=== PATIENT | male | born 1965 | race Caucasian/White ===

== ENCOUNTER 2017-06-28 15:41 | Emergency (ER) | payer BC ==
--- NOTE | 2017-06-28 15:42 | PDOC ---
Rapid Medical Evaluation Time Seen by Provider: 06/28/17 15:42 Medical Evaluation: 06/28/17 15:56 51 year old male with asthma (no hospitalizations, daily Singulair and Dulera) presenting with chest pain. Pain started under right shoulder this morning, now is in right chest. +SOB, +pleuritic chest pain. V/s unremarkable. EKG NSR 78bpm ?[facility] Labs including CBC, CMP, trop, PT/INR CXR -To Main ED for further evaluation
[2017-06-28 15:58] VITALS: TEMP 97.9; BMI 26.4
[2017-06-28 17:03] LABS: BASO % 0.8 % (0-2.0); EOS % 13.5 % (0-4.5); HEMATOCRIT 45.8 % (35.4-49); HEMOGLOBIN 16.2 GM/dL (11.7-16.9); LYMPH % 27.1 % (8-40); MCHC 35.4 g/dl (32.0-35.9); MEAN CELL VOLUME 90.5 fl (80-96); MEAN PLT VOLUME 7.6 fl (7.5-11.1); MONO % 7.1 % (3.8-10.2); NEUT % 51.5 % (42.8-82.8); PLATELET COUNT 229 K/MM3 (134-434); RBC 5.06 M/mm3 (4.00-5.60); RDW 13.1 % (11.9-15.9); WHITE BLOOD COUNT 7.2 K/mm3 (4.0-10.0)
[2017-06-28 17:20] LABS: INR 1.02 (0.82-1.09); PROTHROMBIN TIME (PATIENT) 11.5 SEC (9.98-11.88)
[2017-06-28 17:29] LABS: ALBUMIN 4.4 g/dl (3.4-5.0); ALK PHOS 93 U/L (45-117); ANION GAP 7 (8-16); BILIRUBIN,TOTAL 0.7 mg/dL (0.2-1.0); BLOOD UREA NITROGEN 11 mg/dL (7-18); CALCIUM 9.1 mg/dL (8.5-10.1); CHLORIDE 106 mmol/L (98-107); CO2 28 mmol/L (21-32); CREATININE 1.1 mg/dL (0.7-1.3); GLUCOSE,RANDOM 83 mg/dL (74-106); POTASSIUM 4.3 mmol/L (3.5-5.1); SGOT/AST 20 U/L (15-37); SGPT/ALT 31 U/L (12-78); SODIUM 141 mmol/L (136-145)
--- NOTE | 2017-06-28 21:00 | PDOC ---
History of Present Illness <Idris Estevez - Last Filed: 06/29/17 00:50> - History of Present Illness Initial Comments: 06/28/17 20:50 51-year-old male with a history of asthma (on daily Singulair and Solera) presents to the emergency department with right shoulder blade pain radiating forward to the right side of his chest since 6:30 AM this morning. The patient reports the pain is pressure-like and is associated with tingling down the right upper extremity. He also reports that the pain is worse when he takes a deep breath. He denies any associated nausea, vomiting, diaphoresis. He feels mildly lightheaded intermittently but denies current lightheadedness. Patient denies any history of similar symptoms. Reports his pain is not exertional and is present at rest. Denies recent travel or immobility. Has no smoking history. Has no significant family history of cardiac disease. Has no personal history of DVT, clot. Denies recent trauma or heavy lifting. Denies any drug use. States this does not feel like his asthma symptoms. <Humphrey Valdovinos - Last Filed: 06/29/17 01:00> - General Chief Complaint: Chest Pain Stated Complaint: CHEST PAIN, RT SIDE NUMBNESS Time Seen by Provider: 06/28/17 15:42 Past History <Idris Estevez - Last Filed: 06/29/17 00:50> - Past Medical History Asthma: Yes COPD: No - Suicide/Smoking/Psychosocial Hx Smoking History: Never smoked Information on smoking cessation initiated: No Hx Alcohol Use: No Drug/Substance Use Hx: No Substance Use Type: None <Humphrey Valdovinos - Last Filed: 06/29/17 01:00> - Past Medical History Allergies/Adverse Reactions: Allergies Allergy/AdvReac Type Severity Reaction Status Date / Time No Known Allergies Allergy Verified 06/28/17 15:58 Home Medications: Ambulatory Orders Mometasone/Formoterol [Dulera 200 Mcg/5 Mcg Inhaler] 2 inh IH BID 06/28/17 Montelukast Sodium [Singulair] 10 mg PO HS 06/28/17 Review of Systems - Review of Systems Comments:: 06/28/17 21:09 GENERAL/CONSTITUTIONAL: No fever or chills. No weakness. HEAD, EYES, EARS, NOSE AND THROAT: No change in vision. No ear pain or discharge. No sore throat. GASTROINTESTINAL: No nausea, vomiting, diarrhea or constipation. GENITOURINARY: No dysuria, frequency, or change in urination. CARDIOVASCULAR: +chest pain, no shortness of breath. RESPIRATORY: No cough, wheezing, or hemoptysis. MUSCULOSKELETAL: No joint or muscle swelling or pain. No neck pain. +R shoulder blade pain SKIN: No rash NEUROLOGIC: No headache, vertigo, loss of consciousness, or change in strength/ sensation. +dizziness ENDOCRINE: No increased thirst. No abnormal weight change. HEMATOLOGIC/LYMPHATIC: No anemia, easy bleeding, or history of blood clots. ALLERGIC/IMMUNOLOGIC: No hives or skin allergy. <Humphrey Valdovinos - Last Filed: 06/29/17 01:00> *Physical Exam - Vital Signs Last Vital Signs Temp Pulse Resp BP Pulse Ox 97.9 F 82 18 125/91 95 06/28/17 15:56 06/28/17 15:56 06/28/17 15:56 06/28/17 15:56 06/28/17 15:56 <Idris Estevez - Last Filed: 06/29/17 00:50> - Vital Signs Last Vital Signs Temp Pulse Resp BP Pulse Ox 97.9 F 82 18 125/91 95 06/28/17 15:56 06/28/17 15:56 06/28/17 15:56 06/28/17 15:56 06/28/17 15:56 - Physical Exam Comments: 06/28/17 21:10 GENERAL: Awake, alert, and fully oriented, in no acute distress HEAD: No signs of trauma EYES: PERRLA, EOMI, sclera anicteric, conjunctiva clear ENT: Auricles normal inspection, hearing grossly normal, nares patent, oropharynx clear without exudates. Moist mucosa NECK: Normal ROM, supple, no lymphadenopathy, JVD, or masses LUNGS: Breath sounds equal, clear to auscultation bilaterally. No wheezes, and no crackles HEART: Regular rate and rhythm, normal S1 and S2, no murmurs, rubs or gallops ABDOMEN: Soft, nontender, normoactive bowel sounds. No guarding, no rebound. No masses EXTREMITIES: Normal range of motion, no edema. No clubbing or cyanosis. No cords, erythema, or tenderness. 2+ equal peripheral pulses in all extremities NEUROLOGICAL: Normal speech, cranial nerves intact, negative pronator drift, 5/ 5 strength in all 4 extremities, normal sensation to light touch in all 4 extremities, normal cerebellar exam, normal gait, normal reflexes and tone BACK: +ttp to right rhomboid, no midline spinal ttp. SKIN: Warm, Dry, normal turgor, no rashes or lesions noted. <MarkNaga rodriguezyoli - Last Filed: 06/29/17 01:00> Heart Score/ECG Review - History History: Slightly suspicious - Electrocardiogram EKG: Normal - Age Age: 45-65 - Risk Factors Based on the list above the patient has:: No risk factors known - Troponin Troponin: </= normal limit - Score Heart Score - Total: 1 #1 06/28/17 21:13 Twelve-lead EKG was performed and reviewed by me. Normal sinus rhythm, rate 78. Normal axis and intervals. No ST elevations or T-wave inversions. <Humphrey Valdovinos - Last Filed: 06/29/17 01:00> ED Treatment Course - LABORATORY CBC & Chemistry Diagram: 06/28/17 16:37 06/28/17 16:37 - ADDITIONAL ORDERS Additional order review: Laboratory Results 06/28/17 06/28/17 06/28/17 21:30 16:37 16:37 PT with INR 11.50 INR 1.02 Sodium 141 Potassium 4.3 Chloride 106 Carbon Dioxide 28 Anion Gap 7 L BUN 11 Creatinine 1.1 Creat Clearance w eGFR > 60 Random Glucose 83 Calcium 9.1 Total Bilirubin 0.7 AST 20 ALT 31 Alkaline Phosphatase 93 Creatine Kinase 69 Troponin I < 0.02 < 0.02 Total Protein 8.0 Albumin 4.4 06/28/17 16:37 RBC 5.06 MCV 90.5 MCHC 35.4 RDW 13.1 MPV 7.6 Neutrophils % 51.5 Lymphocytes % 27.1 Monocytes % 7.1 Eosinophils % 13.5 H Basophils % 0.8 - RADIOLOGY Radiograph Interpretation: 06/29/17 00:50 EXAM: CT ABDOMEN AND PELVIS WITH CONTRAST and CT CHEST WITH CONTRAST CHEST 5 mm nodule left upper lobe, advise followup. Very small scattered ground glass densities left lung and right upper lobe, correlate clinically for possible atypical infection/inflammation. No pulmonary embolism. No aortic dissection or aneurysm. No pneumonia or pleural effusions. ABDOMEN/PELVIS No aortic dissection or aneurysm. No bowel obstruction, colitis, diverticulitis, free fluid or free air. Normal appendix. Unremarkable pancreas, kidneys and gallbladder. Small umbilical hernia and patulous left inguinal canal, each scontaining fat. Reported by Magui Hayden M.D. <Idris Estevez - Last Filed: 06/29/17 00:50> - LABORATORY CBC & Chemistry Diagram: 06/28/17 16:37 06/28/17 16:37 - ADDITIONAL ORDERS Additional order review: Laboratory Results 06/28/17 06/28/17 16:37 16:37 PT with INR 11.50 INR 1.02 Sodium 141 Potassium 4.3 Chloride 106 Carbon Dioxide 28 Anion Gap 7 L BUN 11 Creatinine 1.1 Creat Clearance w eGFR > 60 Random Glucose 83 Calcium 9.1 Total Bilirubin 0.7 AST 20 ALT 31 Alkaline Phosphatase 93 Creatine Kinase 69 Troponin I < 0.02 Total Protein 8.0 Albumin 4.4 06/28/17 16:37 RBC 5.06 MCV 90.5 MCHC 35.4 RDW 13.1 MPV 7.6 Neutrophils % 51.5 Lymphocytes % 27.1 Monocytes % 7.1 Eosinophils % 13.5 H Basophils % 0.8 - RADIOLOGY Radiology Studies Ordered: Category Date Time Status ABDOMEN/PELVIS CTA W/WO CONTR [CT] Stat CT Scan 06/28/17 20:43 Ordered CHEST CTA [CT] Stat CT Scan 06/28/17 20:43 Ordered <Humphrey Valdovinos - Last Filed: 06/29/17 01:00> Medical Decision Making - Medical Decision Making 06/28/17 21:14 51-year-old male with a history of asthma presents to the emergency department with right shoulder blade pain radiating anteriorly to the right side of his chest. Vitals unremarkable. Exam with right sided upper back tenderness to palpation. EKG is nonischemic. Differential includes aortic dissection given radiation from back to chest. ACS on differential but pt's HS is 1 for age and thus unlikely. Pt meets no PERC criteria, thus unlikely PE. Initial set of labs including trop is negative. Will obtian CTA to r/o dissection, and get 2nd trop and reassess. 06/29/17 00:56 Troponin negative 2. CTA of chest, abdomen, pelvis negative for dissection but reveals right upper lobe and left-sided groundglass opacities concerning for possible pneumonia. Patient also has lung nodule in the left upper lobe. Discussed all results with patient, given hemodynamically stable, relatively healthy patient, with no recent hospitalizations will treat for community- acquired pneumonia as an outpatient with doxycycline twice a day for 7 days. Patient has been aware of the nodule, informed him it is 5 mm today, he states he will follow-up with his migration agent regarding the nodule. He feels well and requests discharge home. I discussed the physical exam findings, ancillary test results and final diagnoses with the patient. I answered all of the patient's questions. The patient was satisfied with the care received and felt comfortable with the discharge plan and treatment plan. The patient will call their primary care physician within 24 hours to arrange follow-up and will return to the Emergency Department with any new, persistent or worsening symptoms. <Humphrey Valdovinos - Last Filed: 06/29/17 01:00> *DC/Admit/Observation/Transfer - Attestations Scribe Attestion: 06/29/17 00:50 Documentation prepared by Idris Estevez, acting as medical office assistant for Humphrey Valdovinos MD. <Idris Estevez - Last Filed: 06/29/17 00:50> - Discharge Dispostion Admit: No - Attestations Physician Attestion: 06/29/17 01:00 I, Dr. Humphrey Valdovinos MD, attest that this document has been prepared under my direction and personally reviewed by me in its entirety. I further attest, that it accurately reflects all work, treatment, procedures and medical decision -making performed by me. <Humphrey Valdovinos - Last Filed: 06/29/17 01:00> Diagnosis at time of Disposition: Pneumonia - Discharge Dispostion Disposition: HOME Condition at time of disposition: Stable - Referrals Referrals: Mohamud Sommer [Primary Care Provider] - - Patient Instructions Printed Discharge Instructions: DI for Chest Pain Additional Instructions: Take your antibiotics as prescribed. Follow-up with Dr. Sommer within 1-2 days. Also, follow-up with your migration agent regarding your lung nodule. Take the provided report of your CT scan with you to your appointments. Return to the emergency department if you have any new, worsening or concerning symptoms. - Post Discharge Activity
[2017-06-29] MEDS ORDERED: DOXYCYCLINE HYCLATE 100 MG CAPSULE PO ONE ×2 (00:55→01:34)
[2017-06-29 01:44] VITALS: BP 130/77; PULSE 75
--- NOTE | 2017-06-29 10:42 | EKG ---
Test Reason : Blood Pressure : / mmHG Vent. Rate : 078 BPM Atrial Rate : 078 BPM P-R Int : 150 ms QRS Dur : 094 ms QT Int : 396 ms P-R-T Axes : 050 043 043 degrees QTc Int : 451 ms NORMAL SINUS RHYTHM VOLTAGE CRITERIA FOR LEFT VENTRICULAR HYPERTROPHY NO PREVIOUS ECGS AVAILABLE Confirmed by SANA EDOUARD MD ([id number]) on 06/29/2017 10:41:53 AM Referred By: Confirmed By:SANA EDOUARD MD
== END 2017-06-29 01:41 | disposition home or self-care (01) ==
LOC: JER 15:41
DX: J18.9 Pneumonia, unspecified organism (principal); J45.909 Unspecified asthma, uncomplicated
CPT/HCPCS: 36415; 71046-TC-FY; 71275-TC; 74174-TC; 80053; 82550; 84484; 85025; 85610; 93005; 93010; 99284-25

== ENCOUNTER 2019-11-23 14:15 | Emergency (ER) | payer OTHER, BC ==
[2019-11-23 14:26] VITALS: BP 132/82; PULSE 97; TEMP 98; BMI 25.7
[2019-11-23] MEDS ORDERED: KETOROLAC TROMETHAMINE 30 MG/1 ML VIAL IM ONE (14:33)
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
[2019-11-23] MEDS ORDERED: KETOROLAC TROMETHAMINE 30 MG/1 ML VIAL ONE (14:48)
== END 2019-11-23 15:17 | disposition home or self-care (01) ==
LOC: JERFT 14:15
PROC: 3E023GC Introduction of Other Therapeutic Substance into Muscle, Percutaneous Approach (ICD-10-PCS; principal; 2019-11-23)
DX: M25.512 Pain in left shoulder (principal); V49.40XA Driver injured in collision with unspecified motor vehicles in traffic accident, initial encounter
CPT/HCPCS: 73030-TC-LT-FY; 99284-25